=== PATIENT | female | born 1990 | race American Indian/Alaskan Native ===

== ENCOUNTER 2022-01-30 01:10 | Observation (INO) | payer MEDICAID ==
[2022-01-30] MEDS ORDERED: cefTRIAXone 1 GM Vial IM ONE (02:40)
[2022-01-30] MEDS ORDERED: Lidocaine 1% 5 ML VIAL INJECT ONE (02:56)
[2022-01-30] MEDS ORDERED: Lidocaine 1% 5 ML VIAL ONE (02:59)
[2022-01-30 03:04] LABS: ESTIMATED GFR 101 mL/min (>60)
[2022-01-31 12:12] LABS: HBSAG SCREEN Negative (Negative); HCV AB 0.1 s/co ratio (0.0-0.9); HEP A AB, IGM Negative (Negative); HEP B CORE AB, IGM Negative (Negative)
[2022-02-02 16:09] LABS: CHLAMYDIA TRACHOMATIS, NAA Positive (Negative); NEISSERIA GONORRHOEAE, NAA Negative (Negative)
[2022-02-03 13:09] LABS: RPR Non Reactive (Non Reactive); T PALLIDUM ANTIBODIES Reactive (Non Reactive)
== END 2022-01-30 19:30 | disposition left against medical advice (07) ==
LOC: JP.OBCHECK 01:10 → UNDOADMOB 01:15 → JP.MS 01:15 → OBSVTOIN 01:17 → INTOOBSV 01:17 → JP.OB 01:17
PROVIDERS: ADMIT Obstetrics & Gynecology; ATTEND Obstetrics & Gynecology
DX: O14.93 Unspecified pre-eclampsia, third trimester (principal); O23.43 Unspecified infection of urinary tract in pregnancy, third trimester; O98.113 Syphilis complicating pregnancy, third trimester; O99.891 Other specified diseases and conditions complicating pregnancy; R03.0 Elevated blood-pressure reading, without diagnosis of hypertension; O99.333 Smoking (tobacco) complicating pregnancy, third trimester; Z20.822 Contact with and (suspected) exposure to COVID-19; Z79.891 Long term (current) use of opiate analgesic
CPT/HCPCS: 36415; 76805; 80053; 80074; 80305; 81001; 82570; 84156; 85025; 86317; 86762; 86780; 86850; 86900; 86901; 87449; 87491; 87591; 87635; 96372; 99211; G0378; G0379; J0696; U0002